=== PATIENT | female | born 2000 | race Caucasian/White ===

== ENCOUNTER 2024-02-06 11:12 | Emergency (ER) | payer OTHER ==
[2024-02-06] MEDS ORDERED: IBUPROFEN 600 MG TABLET (FP) PO ONE (11:32)
[2024-02-06] MEDS: IBUPROFEN 600 MG TABLET (FP) PO ONE (11:33)
[2024-02-06 12:00] VITALS: BP 108/84; PULSE 63; RESP 16; TEMP 98.1; BMI 24.7
== END 2024-02-06 12:58 | disposition home or self-care (01) ==
LOC: FER 11:12
DX: M79.641 Pain in right hand (principal); M79.89 Other specified soft tissue disorders; Y04.0XXA Assault by unarmed brawl or fight, initial encounter
CPT/HCPCS: 73130-TC-RT-FY; 99283-25